=== PATIENT | male | born 1960 | race Caucasian/White ===

== ENCOUNTER 2022-05-12 19:12 | Emergency (ER) | payer OTHER, MEDICAID ==
[~2022-05-12] VITALS: Ht 182.9 cm; Wt 83.9 kg
[2022-05-12 19:40] VITALS: BP_SYST 137
--- NOTE | 2022-05-12 19:45 | NUR ---
ER Dr. Lamar examining patient.
--- NOTE | 2022-05-12 20:12 | NUR ---
OFFICERS GIVEN MEDICAL CLEARANCE PAPERWORK AND DISCHARGE INSTRUCTIONS. Patient given written and verbal discharge instructions and verbalizes understanding. ER MD discussed with patient the results and treatment provided. Patient in stable condition. ID arm band removed. IV catheter removed intact and dressing applied, no active bleeding. Rx of given. Patient educated on pain management and to follow up with PMD. Pain Scale . Opportunity for questions provided and answered. Medication side effect fact sheet provided.
== END 2022-05-12 20:13 ==
LOC: SED 19:12
DX: F10.129 Alcohol abuse with intoxication, unspecified (principal); V49.49XA Driver injured in collision with other motor vehicles in traffic accident, initial encounter; Y93.89 Activity, other specified; Y92.89 Other specified places as the place of occurrence of the external cause; Y99.8 Other external cause status
CPT/HCPCS: 99283